=== PATIENT | female | born 1995 | race Caucasian/White ===

== ENCOUNTER 2018-07-12 21:09 | Inpatient (IN) | payer MEDICAID ==
[2018-07-12] MEDS ORDERED: OXYTOCIN 30 UNITS/LR 500 ML IV ×2 (22:30)
[2018-07-12] MEDS ORDERED: IBUPROFEN 600 MG TAB PO (22:30)
[2018-07-12] MEDS ORDERED: BUTORPHANOL 2 MG INJ IV (22:30)
[2018-07-12] MEDS ORDERED: AMPICILLIN 2 GM/NS (PMX) 100 ML IV (22:30)
[2018-07-12] MEDS ORDERED: CARBOPROST 250 MCG INJ IM (22:30)
[2018-07-12] MEDS ORDERED: METHYLERGONOVINE 0.2 MG INJ IM (22:30)
[2018-07-12] MEDS ORDERED: MISOPROSTOL 200 MCG TAB PR (22:30)
[2018-07-12] MEDS ORDERED: LIDOCAINE 1% (MPF) 30 ML INJ INJ (22:30)
[2018-07-12 22:41] LABS: ADD MAN DIFF? NO
[2018-07-12 22:43] LABS: BASOPHILS % 0.3 % (0.0-2.0); EOSINOPHILS # 0.1 10^3/ul (0.0-0.5); HEMOGLOBIN 11.7 g/dl (12.0-16.0); LYMPHOCYTES # 1.4 10^3/ul (0.8-2.9); MEAN CORPUSCULAR HGB CONC 33.4 g/dl (32.0-37.0); MEAN CORPUSCULAR VOLUME 92.6 fl (82.0-101.0); MEAN PLATELET VOLUME 9.4 fl (7.4-10.4); MONOCYTE # 0.6 10^3/ul (0.3-0.9); MONOCYTES % 5.4 % (0.0-11.0); NEUTROPHIL # 9.1 10^3/ul (1.6-7.5); NEUTROPHILS % 79.1 % (39.0-77.0); PLATELET COUNT 286 10^3/UL (140-415); RED BLOOD COUNT 3.78 10^6/ul (4.20-5.40); RED CELL DISTRIBUTION WIDTH 12.2 % (11.5-14.5)
[2018-07-12 22:43] LABS: WHITE BLOOD COUNT 11.6 10^3/ul (4.8-10.8)
[2018-07-12 23:02] LABS: PROTIME 12.3 Sec (11.9-14.9)
[2018-07-12 23:03] LABS: PARTIAL THROMBOPLASTIN TIME 28.7 Sec (23.0-35.0)
[2018-07-12 23:33] LABS: HEPATITIS B SURFACE ANTIGEN NEGATIVE (NEGATIVE)
[2018-07-12] MEDS: LACTATED RINGER'S 1,000 ML IV (23:53)
[2018-07-13] MEDS: AZITHROMYCIN 500MG/NS (PMX) 250 ML IVPB (00:01)
[2018-07-13] MEDS ORDERED: FENTAnyl 2MCG/ML-ROPIV 0.2% 100 ML (01:35)
[2018-07-13] MEDS ORDERED: ONDANSETRON 4 MG INJ IV (02:00)
[2018-07-13] MEDS ORDERED: NALOXONE (0.4 MG/ML) INJ IV (02:00)
[2018-07-13] MEDS ORDERED: AMPICILLIN 1 GM/NS (PMX) 50 ML IV (02:30)
[2018-07-13] MEDS: LACTATED RINGER'S 1,000 ML IV ×3 (08:38→19:35)
[2018-07-13] MEDS: MINERAL OIL LIGHT 10 ML VIAL TOP (10:00)
[2018-07-13] MEDS: FENTAnyl 2MCG/ML-ROPIV 0.2% 100 ML BAG EPI (11:33)
[2018-07-13 15:11] LABS: RAPID PLASMA REAGIN NONREACTIVE (NR)
[2018-07-13] MEDS: OXYTOCIN 30 UNITS/LR 500 ML IV ×3 (17:46→23:21)
[2018-07-13] MEDS: ACETAMINOPHEN 500 MG TAB PO (19:28)
[2018-07-13] MEDS ORDERED: HYDROCODONE/APAP (5/325) TAB PO (23:00)
[2018-07-13] MEDS ORDERED: CARBOPROST 250 MCG INJ IM (23:00)
[2018-07-13] MEDS ORDERED: METHYLERGONOVINE 0.2 MG INJ IM (23:00)
[2018-07-13] MEDS ORDERED: OXYTOCIN 30 UNITS/LR 500 ML IV (23:00)
[2018-07-13] MEDS ORDERED: MISOPROSTOL 200 MCG TAB PR (23:00)
[2018-07-13] MEDS: WITCH HAZEL/GLYCERIN PAD PR (23:14)
[2018-07-13] MEDS: BENZOCAINE 20% 56 ML SPRAY TOP (23:14)
[2018-07-14] MEDS: ACETAMINOPHEN 325 MG TAB PO (00:20)
[2018-07-14] MEDS: IBUPROFEN 600 MG TAB PO ×4 (06:00→18:35)
[2018-07-14 06:12] LABS: ADD MAN DIFF? NO
[2018-07-14 06:22] LABS: WHITE BLOOD COUNT 11.3 10^3/ul (4.8-10.8)
[2018-07-14 06:22] LABS: BASOPHILS % 0.2 % (0.0-2.0); EOSINOPHILS # 0.1 10^3/ul (0.0-0.5); EOSINOPHILS % 0.8 % (0.0-7.0); HEMOGLOBIN 10.3 g/dl (12.0-16.0); LYMPHOCYTES # 1.2 10^3/ul (0.8-2.9); LYMPHOCYTES % 10.9 % (15.0-51.0); MEAN CORPUSCULAR HEMOGLOBIN 31.4 pg (29.0-33.0); MEAN CORPUSCULAR HGB CONC 33.2 g/dl (32.0-37.0); MEAN CORPUSCULAR VOLUME 94.5 fl (82.0-101.0); MEAN PLATELET VOLUME 9.8 fl (7.4-10.4); MONOCYTE # 0.6 10^3/ul (0.3-0.9); MONOCYTES % 4.9 % (0.0-11.0); NEUTROPHIL # 9.3 10^3/ul (1.6-7.5); NEUTROPHILS % 82.1 % (39.0-77.0); PLATELET COUNT 225 10^3/UL (140-415); RED BLOOD COUNT 3.28 10^6/ul (4.20-5.40); RED CELL DISTRIBUTION WIDTH 12.3 % (11.5-14.5)
[2018-07-14] MEDS: SENNA/DOCUSATE NA (8.6MG/50MG) TAB PO ×2 (09:58→21:17)
[2018-07-15] MEDS: IBUPROFEN 600 MG TAB PO ×4 (00:56→18:00)
[2018-07-15] MEDS: SENNA/DOCUSATE NA (8.6MG/50MG) TAB PO (09:00)
[2018-07-15] MEDS: DIPHTH/TET/ACEL PERTUSS (ADULT) 0.5 ML VIAL IM* (09:07)
[2018-07-15] MEDS: AZITHROMYCIN 500 MG TAB PO (13:17)
[2018-07-16] MEDS: SENNA/DOCUSATE NA (8.6MG/50MG) TAB PO ×2 (09:00→10:11)
[2018-07-16] MEDS: HYDROCODONE/APAP (5/325) TAB PO (11:00)
[2018-07-16] MEDS: IBUPROFEN 600 MG TAB PO ×2 (12:26)
== END 2018-07-16 17:42 | disposition home or self-care (01) | DRG 807 ==
LOC: OBT 21:09 → L-D 21:10 → PP1 07-13 20:31 → OBT 21:40 → L-D 21:40
PROVIDERS: Obstetrics & Gynecology
PROC: 10E0XZZ Delivery of Products of Conception, External Approach (ICD-10-PCS; principal; 2018-07-13)
PROC: 0KQM0ZZ Repair Perineum Muscle, Open Approach (ICD-10-PCS; 2018-07-13)
PROC: 3E033VJ Introduction of Other Hormone into Peripheral Vein, Percutaneous Approach (ICD-10-PCS; 2018-07-13)
DX: O48.0 Post-term pregnancy (principal); Z37.0 Single live birth; O70.1 Second degree perineal laceration during delivery; Z3A.40 40 weeks gestation of pregnancy
CPT/HCPCS: 62322; 76815; 85025; 85610; 85730; 86592; 86850; 86900; 86901; 87340